=== PATIENT | male | born 1980 | race Two or more races ===

== ENCOUNTER 2017-07-09 13:43 | Emergency (ER) | payer SELFPAY ==
[2017-07-09 13:52] VITALS: PULSE 61; RESP 16; TEMP 98.3; O2SAT 100
--- NOTE | 2017-07-09 14:21 | ED PDOC ---
Upper Extremity Pain/Injury Time Seen by Provider: 07/09/17 14:00 Chief Complaint (Nursing): Upper Extremity Problem/Injury Chief Complaint (Provider): Right 5th digit injury History Per: Patient History/Exam Limitations: no limitations Onset/Duration Of Symptoms: Hrs Current Symptoms Are (Timing): Still Present Additional Complaint(s): The patient is a 37yo male, presents to the ED for evaluation s/p sustaining a laceration to his right 5th digit while attempting to cut a tomato. He denies any numbness or tingling and at present offers no additional medical complaints. Tetanus is up to date. Past Medical History Reviewed: Historical Data, Nursing Documentation, Vital Signs Vital Signs: Last Vital Signs Temp 98.3 F 07/09/17 13:49 Pulse 61 07/09/17 13:49 Resp 16 07/09/17 13:49 BP 156/80 H 07/09/17 13:49 Pulse Ox 100 07/09/17 13:49 - Medical History PMH: No Chronic Diseases - Surgical History Surgical History: No Surg Hx - Family History Family History: States: No Known Family Hx - Home Medications Home Medications: Ambulatory Orders Medication Instructions Recorded Cephalexin [Keflex] 500 mg PO BID #14 capsule 07/09/17 - Allergies Allergies/Adverse Reactions: Allergies Allergy/AdvReac Type Severity Reaction Status Date / Time No Known Allergies Allergy Verified 07/09/17 13:52 Review of Systems ROS Statement: Except As Marked, All Systems Reviewed And Found Negative Musculoskeletal: Positive for: Hand Pain (laceration right 5th digit) Neurological: Negative for: Weakness, Numbness Physical Exam - Reviewed Nursing Documentation Reviewed: Yes Vital Signs Reviewed: Yes - Physical Exam Appears: Positive for: Well, Non-toxic, No Acute Distress Head Exam: Positive for: ATRAUMATIC, NORMAL INSPECTION, NORMOCEPHALIC Skin: Positive for: Normal Color Neck: Positive for: Normal Respiratory: Negative for: Respiratory Distress Extremity: Positive for: Normal ROM (good motor strength), Capillary Refill (< 2 seconds), Other (2cm laceration to anterior distal right 5th digit). Negative for: Deformity, Swelling Neurologic/Psych: Positive for: Alert, Oriented - ECG O2 Sat by Pulse Oximetry: 100 (RA) Pulse Ox Interpretation: Normal Medical Decision Making Medical Decision Making: Time: 1410 Impression: Laceration on right 5th digit Plan: -- See procedure note for laceration repair Time: 1443 Wound repaired and sterile dressing applied. Patient stable for d/c home. Scribe Attestation: Documented by Catrachita Chappell acting as a scribe for DELONTE Kauffman Provider Attestation: All medical record entries made by the Scribe were at my direction and personally dictated by me. I have reviewed the chart and agree that the record accurately reflects my personal performance of the history, physical exam, medical decision making, and the department course for this patient. I have also personally directed, reviewed, and agree with the discharge instructions and disposition. Procedures - Time-Out Type of Procedure: Laceration repair Site of Procedure: Right 5th digit Correct Patient: Yes Correct Procedure: Yes Correct Site Marked: Yes PA/Tech: Ivelisse Inman - Laceration/Wound Repair Right 5th digit Wound Length (cm): 2 Wound's Depth, Shape: superficial, linear Wound Explored: clean Betadine Prep?: Yes Anesthesia: 1% Lidocaine Volume Anesthetic (ccs): 2 Wound Repaired With: Sutures Suture Size/Type: 4:0, proline Number of Sutures: 5 Layer Closure?: Yes Wound Complexity: Simple Sterile Dressing Applied?: Yes Progress: Patient tolerated procedure well Disposition - Clinical Impression Clinical Impression: Finger laceration - Disposition Disposition: Routine/Home Disposition Time: 14:46 Condition: GOOD Additional Instructions: Do not get wet for 24-48 hours. Keep clean and dry with antibiotic ointment. Please take oral antibiotics twice a day. Suture removal in 8-10 days. Return sooner for signs of infection which include increased pain, drainage, redness. Prescriptions: Cephalexin [Keflex] 500 mg PO BID #14 capsule Instructions: Care For Your Stitches (ED) Forms: [employer] ([place])
[2017-07-09 14:58] VITALS: BP 132/76
== END 2017-07-09 14:48 | disposition home or self-care (01) ==
LOC: H.ER 13:43
DX: S61.216A Laceration without foreign body of right little finger without damage to nail, initial encounter (principal); W26.0XXA Contact with knife, initial encounter; Y93.G1 Activity, food preparation and clean up; Y92.9 Unspecified place or not applicable